=== PATIENT | male | born 1985 | race Caucasian/White ===

== ENCOUNTER 2017-04-30 13:08 | Emergency (ER) | payer SELFPAY ==
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
== END 2017-04-30 15:30 | disposition home or self-care (01) ==
LOC: JD.ED 13:08
DX: R42 Dizziness and giddiness (principal); F10.10 Alcohol abuse, uncomplicated; F17.200 Nicotine dependence, unspecified, uncomplicated
CPT/HCPCS: 99284